=== PATIENT | female | born 1995 | race Caucasian/White ===

== ENCOUNTER 2017-03-21 20:04 | Emergency (ER) | payer OTHER ==
[~2017-03-21] VITALS: Ht 162.6 cm; Wt 50.0 kg
[2017-03-21 20:09] VITALS: BP 126/85; PULSE 78; RESP 16; O2SAT 99
[2017-03-21 21:35] LABS: BASOPHILS % (AUTO) 0.4 % (0-3); EOSINOPHILS % (AUTO) 3.1 % (0-5); MONOCYTES % (AUTO) 11.5 % (4-12); Mean Corpuscular Hemoglobin 29.2 pg (27.0-35.0); Mean Corpuscular Volume 90.2 fL (81-100); NEUTROPHILS % (AUTO) 68.7 % (40-74); Platelet Count 286 bil/L (150-400)
--- NOTE | 2017-03-21 21:57 | ED.REPORT ---
HPI-Preg Under 20 Weeks Date of Service Mar 21, 2017 ED Provider: Aftab Granda MD Patient is a 21 year old female who had a positive test on 03/17/17 who presents to the ED complaining of light vaginal bleeding onset 1300 today. Associated symptoms include abdominal pain that she describes as cramping for the past 3 days. The patient states that the cramping started out as a discomfort and has gotten progressively worse today. She reports that it feels like cramps that she gets during menstruation. Nursing Notes Stated Complaint: , BLEEDING Chief Complaint: Female Abdominal Pain Nursing Notes Reviewed: Yes Allergies: Coded Allergies: No Known Allergies (Unverified , 03/21/17) General Time Seen by Provider: 21:58 Chief Complaint Vaginal bleeding Hx Obtained From: Patient Arrived By: Walk-in Onset Occurred: 5 - 8 hours ago Quality: Cramping Recent Healthcare: No recent doctor visit, No recent hospitalization Similar Sx Previous: No Past Medical History Past Medical History none reported Social History Other Social History: Good social support Ambulatory Status Independent Review of Systems Constitutional: Denies: Fever Respiratory: Denies: Non-productive cough, Shortness of breath GI: Reports: Abdominal pain, Denies: Vomiting Female: Reports: , Vaginal bleeding - abnl Skin: Denies Itching, Denies Rash Complete sys rev & neg: except as marked. Physical Exam Initial Vital Signs Vital Signs (First) Date Time Temp Pulse Resp B/P Pulse Ox O2 Delivery O2 Flow Rate FiO2 03/21/17 20:09 37.4 78 16 126/85 99 03/21/17 22:45 Room Air Initial VS: Reviewed, Vital signs normal General/Constitutional: Awake, Alert, No acute distress Abdomen: Atraumatic, Soft, Non-tender Female Genitourinary: Exam deferred : Contractions not present Benign abdominal exam, patient is not currently . Respiratory / Chest: Atraumatic, Breath sounds NL, Breath sounds = bilat, No respiratory distress Cardiovascular: Heart rate NL, Regular rhythm, Heart sounds NL Neurologic: Oriented X3, Speech NL, No motor deficits, No sensory deficits Head / Eyes: Atraumatic, Normocephalic, PERRL, EOMI Skin: Atraumatic, Color NL, No rash, Warm, Dry Psychiatric: Affect NL, Mood NL Interpretation & Diagnostics Lab Results Interpretation Result Diagram: 03/21/17212603/21/172126 Test 03/21/17 21:27 White Blood Count 7.1th/mm3 (3.8-10.1) Red Blood Count 3.97mil/mm3 (3.90-5.20) Hemoglobin 11.6g/dL (12.0-15.6) Hematocrit 35.8% (35.0-46.0) Mean Corpuscular Volume 90.2fL (81-100) Mean Corpuscular Hemoglobin 29.2pg (27.0-35.0) Mean Corpuscular Hemoglobin Concent 32.4% (32.0-37.0) Red Cell Distribution Width 12.8% (12.3-15.4) Platelet Count 286bil/L (150-400) Neutrophils (%) (Auto) 68.7% (40-74) Lymphocytes (%) (Auto) 16.3% (14-46) Monocytes (%) (Auto) 11.5% (4-12) Eosinophils (%) (Auto) 3.1% (0-5) Basophils (%) (Auto) 0.4% (0-3) Sodium Level 139mEq/L (134-144) Potassium Level 3.5mEq/L (3.5-5.2) Chloride Level 103mEq/L (97-108) Carbon Dioxide Level 24mmol/L (18-29) Blood Urea Nitrogen 6mg/dL (6-20) Creatinine 0.58mg/dL (0.57-1.00) Estimat Glomerular Filtration Rate 188mL/min (>59) Glucose Level 116mg/dL (60-99) Calcium Level 9.4mg/dL (8.5-10.1) Magnesium Level 2.0mg/dL (1.6-2.6) Total Bilirubin 0.3mg/dL (0.0-1.2) Aspartate Amino Transf (AST/SGOT) 14U/L (0-50) Alanine Aminotransferase (ALT/SGPT) 10U/L (0-32) Alkaline Phosphatase 71U/L (25-150) Total Protein 8.0g/dL (6.4-8.4) Albumin 4.3g/dL (3.4-5.0) Lipase 35U/L (13-60) HCG Beta Subunit 2.09mIU/mL Hold [place] Top Tube Received (Received) Re-Eval/Medical Decision Med Decision/Clinical Course 21-year-old female who had 3 faintly positive urine tests at home over the last 2 weeks. She is now about 2 weeks late on her period. Quantitative beta hCG here in the emergency room is 2.9, non. Her abdominal exam is completely benign. She likely had a blighted ovum or early miscarriage. Follow-up with her regular doctor if the bleeding persists. Re-Evaluation/Progress : Time of Eval: 22:24 Re-Evaluation/Progress Note: Discussed results and plan for discharge. The patient understands and agrees to the plan. All questions were addressed. Counseled Regarding: Diagnosis, Lab results, Need for follow-up, When/why to return to ED Discharge & Departure Primary Impression: Miscarriage Disposition: Home Discharge Condition All VS Reviewed: Yes Condition: Stable Patient Instructions: Miscarriage (ED) Additional Instructions: The test is no longer positive. It appears that you have miscarried or are in the process of miscarrying. An ultrasound likely not be helpful at this time. Contact your regular doctor or return to the emergency room if you have continued cramping and bleeding. Call me at [phone] between the hours of 9 PM and 6 AM for the next couple nights if you have any questions or concerns. Referrals: Melinda Burch PA-C (PCP) [facility] Portions of this note were transcribed by Demetria Whittington. I, Dr. Granda personally performed the history, physical exam and medical decision-making; I reviewed and confirmed the accuracy of the information in the transcribed note. Signed by:Charbel Ayers, 03/21/17 and 9756 copies to: Melinda Burch PA-C, Howard L MD Mar 21, 2017 21:57 Emilia Whittington Mar 21, 2017 22:05
[2017-03-21 22:45] VITALS: BP 126/62; PULSE 69; RESP 14; O2SAT 100
== END 2017-03-21 22:46 | disposition home or self-care (01) ==
LOC: SED 20:04
DX: O03.9 Complete or unspecified spontaneous abortion without complication (principal); Z3A.00 Weeks of gestation of pregnancy not specified